=== PATIENT | male | born 1985 | race Caucasian/White ===

== ENCOUNTER 2022-07-30 05:58 | Emergency (ER) | payer OTHER ==
[2022-07-30 06:11] VITALS: BP 129/94; PULSE 86; RESP 16; TEMP 97.9; BMI 29.5
[2022-07-30] MEDS ORDERED: IBUPROFEN 600 MG TABLET (FP) PO ONE ×2 (06:37→06:39)
== END 2022-07-30 07:36 | disposition home or self-care (01) ==
LOC: FER 05:58
DX: M25.562 Pain in left knee (principal); X50.0XXA Overexertion from strenuous movement or load, initial encounter
CPT/HCPCS: 73562-TC-LT-FY; 99283-25

== ENCOUNTER 2023-05-11 07:34 | Emergency (ER) | payer OTHER ==
[2023-05-11 07:49] VITALS: BP 131/92; PULSE 84; RESP 20; TEMP 98.2; BMI 32.5
[2023-05-11] MEDS ORDERED: ONDANSETRON 4 MG/2 ML VIAL IVPUSH ONE (07:50)
[2023-05-11] MEDS ORDERED: FAMOTIDINE 20 MG/50 ML IVPB 20 MG/50 ML MG IVPB ONE ×2 (07:50→08:25)
[2023-05-11] MEDS ORDERED: SODIUM CHLORIDE 500 ML IV STA (07:50)
[2023-05-11] MEDS ORDERED: ACETAMINOPHEN 1000 MG/100 ML BAG IVPB ONE (07:50)
[2023-05-11] MEDS ORDERED: ONDANSETRON 4 MG/2 ML VIAL ONE ×2 (08:04→08:07)
[2023-05-11] MEDS ORDERED: ACETAMINOPHEN INJECTION 100 ML IVPB ONE (08:04)
[2023-05-11 08:47] LABS: HEMATOCRIT 48.9 % (35.4-49); HEMOGLOBIN 16.8 G/dL (11.7-16.9); MCH 29.8 pg (25.7-33.7); MCHC 34.3 g/dl (32.0-35.9); MEAN CELL VOLUME 86.7 fl (80-96); MEAN PLT VOLUME 8.4 fl (7.5-11.1); PLATELET COUNT 232.9 10^3/uL (134-434); RBC 5.64 10^6/uL (4.00-5.60); RDW 14.3 % (11.9-15.9); WHITE BLOOD COUNT 9.5 10^3/uL (4.0-10.8)
[2023-05-11 09:12] LABS: BILIRUBIN,DIRECT 0.2 mg/dL (0.0-0.2); BILIRUBIN,TOTAL 0.9 mg/dl (0.2-1); CALCIUM 9.6 mg/dl (8.5-10.1); CREATININE 0.8 mg/dl (0.6-1.3); MAGNESIUM 2.1 mg/dL (1.8-2.4); POTASSIUM 3.6 mmol/L (3.5-5.1); SGOT/AST 18.2 U/L (15-37); SGPT/ALT 29.1 U/L (7-52); TOT PROT 7.3 g/dl (6.4-8.2)
[2023-05-11 09:55] LABS: PLATELET ESTIMATE ADEQUATE
[2023-05-11] MEDS ORDERED: KETOROLAC TROMETHAMINE 15 MG/ML VIAL IM ONE (11:02)
[2023-05-11] MEDS ORDERED: LIDOCAINE 5% TOPICAL PATCH TP ONE (11:02)
[2023-05-11] MEDS ORDERED: LIDOCAINE 5% TOPICAL PATCH ONE (11:06)
[2023-05-11] MEDS ORDERED: KETOROLAC TROMETHAMINE 15 MG/ML VIAL ONE (11:06)
[2023-05-11] MEDS ORDERED: LIDOCAINE PATCH REMOVAL MC SCH (22:00)
== END 2023-05-11 11:37 | disposition home or self-care (01) ==
LOC: FER 07:34
PROC: 3E033GC Introduction of Other Therapeutic Substance into Peripheral Vein, Percutaneous Approach (ICD-10-PCS; principal; 2023-05-11)
PROC: 3E033GC Introduction of Other Therapeutic Substance into Peripheral Vein, Percutaneous Approach (ICD-10-PCS; 2023-05-11)
PROC: 3E0233Z Introduction of Anti-inflammatory into Muscle, Percutaneous Approach (ICD-10-PCS; 2023-05-11)
DX: R10.11 Right upper quadrant pain (principal); R11.0 Nausea; S20.211A Contusion of right front wall of thorax, initial encounter; X58.XXXA Exposure to other specified factors, initial encounter
CPT/HCPCS: 36415; 74177-TC; 76705-TC; 80053; 81003; 82248; 83690; 83735; 85027; 93005; 99285-25; Q9967

== ENCOUNTER 2023-06-15 11:45 | Emergency (ER) | payer OTHER ==
[2023-06-15] MEDS ORDERED: METHOCARBAMOL 500 MG TABLET ONE (11:58)
[2023-06-15] MEDS ORDERED: LIDOCAINE 5% TOPICAL PATCH ONE (11:58)
[2023-06-15] MEDS ORDERED: SODIUM CHLORIDE 0.9% 500 ML INFUS.BAG IV ONE (11:58)
[2023-06-15] MEDS ORDERED: KETOROLAC TROMETHAMINE 30 MG/1 ML VIAL ONE (11:58)
[2023-06-15] MEDS ORDERED: ACETAMINOPHEN 325 MG TABLET (FP) ONE (11:58)
[2023-06-15 12:10] VITALS: TEMP 98.8; BMI 32.5
[2023-06-15 12:29] LABS: HEMATOCRIT 45.2 % (35.4-49); HEMOGLOBIN 15.7 G/dL (11.7-16.9); MCH 30.2 pg (25.7-33.7); MCHC 34.6 g/dl (32.0-35.9); MEAN CELL VOLUME 87.2 fl (80-96); MEAN PLT VOLUME 7.5 fl (7.5-11.1); PLATELET COUNT 204.3 10^3/uL (134-434); RBC 5.18 10^6/uL (4.00-5.60); RDW 14.3 % (11.9-15.9); WHITE BLOOD COUNT 7.5 10^3/uL (4.0-10.8)
[2023-06-15 12:34] LABS: PLATELET ESTIMATE ADEQUATE
[2023-06-15 12:38] LABS: ALBUMIN 4.4 g/dl (3.4-5.0); BILIRUBIN,TOTAL 0.4 mg/dl (0.2-1); BLOOD UREA NITROGEN 20.2 mg/dl (7-18); CALCIUM 8.8 mg/dl (8.5-10.1); CREATININE 0.7 mg/dl (0.6-1.3); POTASSIUM 4.1 mmol/L (3.5-5.1); SGOT/AST 12.7 U/L (15-37); SGPT/ALT 18.3 U/L (7-52); TOT PROT 6.4 g/dl (6.4-8.2)
[2023-06-15] MEDS ORDERED: KETOROLAC TROMETHAMINE 30 MG/1 ML VIAL IVPUSH ONE (14:14)
[2023-06-15] MEDS ORDERED: KETOROLAC TROMETHAMINE 15 MG/ML VIAL ONE (14:19)
[2023-06-15 14:38] VITALS: BP 138/96; PULSE 82; RESP 16
== END 2023-06-15 14:33 | disposition home or self-care (01) ==
LOC: FER 11:45
PROC: 3E0333Z Introduction of Anti-inflammatory into Peripheral Vein, Percutaneous Approach (ICD-10-PCS; principal; 2023-06-15)
DX: R10.9 Unspecified abdominal pain (principal)
CPT/HCPCS: 36415; 74176-TC; 80053; 81003; 81015; 85027; 93005; 99285-25

== ENCOUNTER 2023-06-17 08:18 | Emergency (ER) | payer OTHER ==
[2023-06-17 08:25] VITALS: BP 125/87; PULSE 88; RESP 18; TEMP 98.1; BMI 32.5
[2023-06-17] MEDS ORDERED: IBUPROFEN 600 MG TABLET (FP) PO ONE ×2 (08:33→08:39)
== END 2023-06-17 11:58 | disposition home or self-care (01) ==
LOC: FER 08:18 → SUPCPDRO 08:18 → FER 11:58
DX: M79.641 Pain in right hand (principal); S63.8X1A Sprain of other part of right wrist and hand, initial encounter; R22.31 Localized swelling, mass and lump, right upper limb; W22.01XA Walked into wall, initial encounter; Y99.0 Civilian activity done for income or pay
CPT/HCPCS: 73110-TC-RT-FY; 73130-TC-RT-FY; 99283-25

== ENCOUNTER 2023-12-25 05:07 | Emergency (ER) | payer OTHER ==
[2023-12-25] MEDS ORDERED: FLUORESCEIN NA 1 EA STRIP ONE (05:15)
[2023-12-25] MEDS ORDERED: TETRACAINE 0.5% OPHTH SOLN 2 ML BOTTLE ONE (05:15)
[2023-12-25] MEDS ORDERED: TOBRA 0.3%/DEXAMETH 0.1% OPHTHALMIC SUSP 2.5 ML BTL ONE (05:27)
[2023-12-25] MEDS: TOBRA 0.3%/DEXAMETH 0.1% OPHTHALMIC SUSP 2.5 ML BTL OS STA (05:34)
[2023-12-25 05:35] VITALS: BP 141/100; PULSE 80; RESP 18; TEMP 97.7; BMI 29.5
== END 2023-12-25 05:39 | disposition home or self-care (01) ==
LOC: FER 05:07
DX: S05.02XA Injury of conjunctiva and corneal abrasion without foreign body, left eye, initial encounter (principal); W25.XXXA Contact with sharp glass, initial encounter
CPT/HCPCS: 99283-25

== ENCOUNTER 2024-02-10 05:27 | Emergency (ER) | payer OTHER ==
[2024-02-10 05:59] VITALS: BP 123/83; PULSE 95; RESP 18; TEMP 97.7; BMI 29.6
[2024-02-10] MEDS ORDERED: IBUPROFEN 600 MG TABLET (FP) PO ONE (06:00)
[2024-02-10] MEDS: IBUPROFEN 600 MG TABLET (FP) PO ONE (06:32)
== END 2024-02-10 06:48 | disposition home or self-care (01) ==
LOC: FER 05:27
DX: S83.91XA Sprain of unspecified site of right knee, initial encounter (principal); S83.92XA Sprain of unspecified site of left knee, initial encounter; Y04.0XXA Assault by unarmed brawl or fight, initial encounter
CPT/HCPCS: 73562-TC-LT-FY; 99283-25

== ENCOUNTER 2024-05-31 04:59 | Emergency (ER) | payer BC, OTHER ==
[2024-05-31 05:05] VITALS: BP 121/81; PULSE 90; RESP 17; TEMP 98.1; BMI 32.5
[2024-05-31] MEDS ORDERED: IBUPROFEN 600 MG TABLET (FP) PO ONE (05:42)
[2024-05-31] MEDS ORDERED: LIDOCAINE 5% TOPICAL PATCH ONE (05:48)
[2024-05-31] MEDS: IBUPROFEN 600 MG TABLET (FP) PO ONE (05:53)
[2024-05-31] MEDS: LIDOCAINE 5% TOPICAL PATCH TP ONE (05:54)
[2024-05-31] MEDS ORDERED: LIDOCAINE PATCH REMOVAL MC SCH (22:00)
== END 2024-05-31 07:58 | disposition home or self-care (01) ==
LOC: FER 04:59
DX: K40.90 Unilateral inguinal hernia, without obstruction or gangrene, not specified as recurrent (principal); M62.830 Muscle spasm of back; M25.531 Pain in right wrist; Y35.811A Legal intervention involving manhandling, law enforcement official injured, initial encounter
CPT/HCPCS: 76870-TC; 99284-25

== ENCOUNTER 2024-07-04 04:35 | Day surgery (SDC) | payer OTHER ==
[2024-07-03 15:34] VITALS: BMI 32.5
[2024-07-04] MEDS ORDERED: LIDOCAINE HCL/PF 1% SDV 5ML VIAL ONE (08:46)
[2024-07-04] MEDS ORDERED: BUPIVACAINE HCL/PF 0.75% 10 ML VIAL ONE ×2 (08:46→12:46)
[2024-07-04 13:25] VITALS: TEMP 98.2
[2024-07-04 13:49] VITALS: BP 142/92; PULSE 74; RESP 20
== END 2024-07-04 13:50 | disposition home or self-care (01) ==
LOC: JASU-SURG 04:35
PROVIDERS: ATTEND Pain Medicine Pain Medicine
PROC: 3E0T3BZ Introduction of Anesthetic Agent into Peripheral Nerves and Plexi, Percutaneous Approach (ICD-10-PCS; principal; 2024-07-04 11:45)
DX: M47.816 Spondylosis without myelopathy or radiculopathy, lumbar region (principal)
CPT/HCPCS: 76000-TC-FY

== ENCOUNTER 2024-07-25 04:45 | Day surgery (SDC) | payer OTHER ==
[2024-07-24 12:42] VITALS: BMI 32.5
[2024-07-25] MEDS: LIDOCAINE HCL 1% PRESERVATIVE FREE - 30ML VIAL IJ ONE
[2024-07-25] MEDS ORDERED: LIDOCAINE HCL/PF 1% SDV 5ML VIAL ONE (07:32)
[2024-07-25] MEDS ORDERED: DEXAMETHASONE SOD PHOSPHATE 10 MG/1 ML VIAL ONE (07:32)
[2024-07-25] MEDS ORDERED: SODIUM CHLORIDE 0.9% P/F 10 ML VIAL IJ ONE (07:40)
[2024-07-25] MEDS: IOHEXOL 180 MG/1 ML ML IJ ONE (13:05)
[2024-07-25] MEDS: DEXAMETHASONE SOD PHOSPHATE 10 MG/1 ML VIAL IM ONE (13:06)
[2024-07-25 13:50] VITALS: BP 128/74; PULSE 82; RESP 20; TEMP 97.3
== END 2024-07-25 13:25 | disposition home or self-care (01) ==
LOC: JASU-SURG 04:45
PROVIDERS: ATTEND Pain Medicine Pain Medicine
PROC: 3E0R3BZ Introduction of Anesthetic Agent into Spinal Canal, Percutaneous Approach (ICD-10-PCS; 2024-07-25)
PROC: 3E0R33Z Introduction of Anti-inflammatory into Spinal Canal, Percutaneous Approach (ICD-10-PCS; principal; 2024-07-25 12:30)
DX: M54.16 Radiculopathy, lumbar region (principal); M48.061 Spinal stenosis, lumbar region without neurogenic claudication
CPT/HCPCS: 76000-TC-FY; J1100

== ENCOUNTER 2024-10-31 04:28 | Day surgery (SDC) | payer OTHER ==
[2024-10-28 09:25] VITALS: BMI 32.5
[2024-10-31] MEDS ORDERED: LIDOCAINE HCL/PF 2% SDV 5ML VIAL ONE ×2 (07:15→07:38)
[2024-10-31] MEDS ORDERED: BUPIVACAINE HCL/PF 0.25% (2.5MG/ML) 10 ML VIAL ONE (07:15)
[2024-10-31] MEDS ORDERED: LIDOCAINE HCL/PF 1% SDV 5ML VIAL ONE ×2 (07:15→07:38)
[2024-10-31] MEDS ORDERED: MIDAZOLAM HCL 2 MG/2 ML SINGLE DOSE VIAL ONE ×3 (09:24→10:11)
[2024-10-31] MEDS ORDERED: ceFAZolin SODIUM 1 GM VIAL ONE (09:29)
[2024-10-31] MEDS: ceFAZolin SODIUM 1 GM VIAL IVPB ONE (09:35)
[2024-10-31] MEDS: LIDOCAINE HCL/PF 2% SDV 5ML VIAL INF ONE ×3 (09:45→10:10)
[2024-10-31] MEDS: LIDOCAINE HCL 1% PRESERVATIVE FREE - 30ML VIAL IJ ONE ×3 (09:45)
[2024-10-31] MEDS ORDERED: PROPOFOL 20 ML ONE (11:01)
[2024-10-31 11:34] VITALS: RESP 20; TEMP 98.6
[2024-10-31] MEDS ORDERED: ACETAMINOPHEN 500 MG TABLET (FP) ONE (11:38)
[2024-10-31] MEDS: ACETAMINOPHEN 500 MG TABLET (FP) PO PRN (11:48)
[2024-10-31] MEDS ORDERED: ACETAMINOPHEN 500 MG TABLET (FP) PO PRN (12:09)
[2024-10-31 13:37] VITALS: BP 120/80; PULSE 84
== END 2024-10-31 13:10 | disposition home or self-care (01) ==
LOC: JASU-SURG 04:28
PROVIDERS: ATTEND Pain Medicine Pain Medicine
PROC: 015B0ZZ Destruction of Lumbar Nerve, Open Approach (ICD-10-PCS; 2024-10-31)
PROC: 015B3ZZ Destruction of Lumbar Nerve, Percutaneous Approach (ICD-10-PCS; principal; 2024-10-31 09:30)
DX: M54.51 Vertebrogenic low back pain (principal)
CPT/HCPCS: 76000-TC-FY

== ENCOUNTER 2024-12-25 07:11 | Day surgery (SDC) | payer OTHER ==
[2024-12-23 17:45] VITALS: BMI 32.5
[2024-12-25 08:15] VITALS: RESP 18
[2024-12-25 10:26] VITALS: BP 137/97; PULSE 75; TEMP 98
[2024-12-25] MEDS ORDERED: ACETAMINOPHEN 500 MG TABLET (FP) PO PRN (16:55)
== END 2024-12-25 11:05 | disposition home or self-care (01) ==
LOC: JASU-SURG 07:11
PROVIDERS: ATTEND Pain Medicine Pain Medicine
PROC: 01HY3MZ Insertion of Neurostimulator Lead into Peripheral Nerve, Percutaneous Approach (ICD-10-PCS; principal; 2024-12-25 09:57)
DX: G89.4 Chronic pain syndrome (principal); M54.50 Low back pain, unspecified
CPT/HCPCS: 64555; C1778; 76000-TC-FY